=== PATIENT | female | born 1980 | race African-American/Black ===

== ENCOUNTER 2020-10-24 14:45 | Emergency (ER) | payer OTHER ==
[~2020-10-24] VITALS: Ht 167.6 cm; Wt 85.0 kg
[2020-10-24] MEDS ORDERED: LISI40TA4 PO (14:56)
[2020-10-24] MEDS ORDERED: TOPR100T PO (14:56)
[2020-10-24] MEDS ORDERED: AMLO10TA PO (14:56)
[2020-10-24] MEDS ORDERED: HYDR12.55 PO (14:56)
--- NOTE | 2020-10-24 15:26 | REP ---
INDICATION: left knee felt pop when standing, it twisted COMPARISON: None. TECHNIQUE: AP, lateral, bilateral oblique and sunrise views. FINDINGS: Mild/early moderate tricompartmental osteoarthritic degenerative changes are appreciated. No obvious acute fracture or dislocation. No definite effusion. IMPRESSION: Mild/early moderate tricompartmental osteoarthritic changes. No acute fracture or dislocation. <Electronically signed by Xavier Jimenez > 10/24/20 [id number]
[2020-10-24] MEDS ORDERED: NORCO, ANEXSIA 5/325MG TABLET (HYDROcodone/ACETAMINOPHEN) PO ONE (15:35)
[2020-10-24 15:56] VITALS: BP 137/82
== END 2020-10-24 16:09 | disposition home or self-care (01) ==
LOC: M ED 14:45
DX: S83.412A Sprain of medial collateral ligament of left knee, initial encounter (principal); X50.9XXA Other and unspecified overexertion or strenuous movements or postures, initial encounter; Y92.018 Other place in single-family (private) house as the place of occurrence of the external cause; I10 Essential (primary) hypertension; Z91.018 Allergy to other foods; Z79.899 Other long term (current) drug therapy

== ENCOUNTER → 2020-11-08 | Outpatient (CLI) | payer OTHER ==
[~2020-11-08] MED LIST: AMLO10TA PO; HYDR12.55 PO; LISI40TA4 PO; TOPR100T PO
== END ==
LOC: M WHC 14:52
PROVIDERS: ATTEND Family Medicine
DX: Z12.31 Encounter for screening mammogram for malignant neoplasm of breast (principal)

== ENCOUNTER → 2020-11-24 | Outpatient (CLI) | payer OTHER ==
[~2020-11-24] MED LIST changes: +COLA100C5 PO; +D31000TA2 PO
--- NOTE | 2020-11-25 02:42 | REP ---
INDICATION: PAIN. COMPARISON: None. TECHNIQUE: AP weightbearing view of the bilateral knees along with lateral and sunrise view of the left knee. FINDINGS: AP weightbearing view demonstrates increased sclerosis along the tibial plateau with somewhat asymmetric concavity along the lateral tibial plateau with joint space narrowing and subtle marginal spurring. [place] view demonstrates very subtle marginal patellar spurring. There is no evidence for acute fracture or dislocation. No effusion. IMPRESSION: Degenerative changes suggested primarily involving the lateral compartment. Findings do not specifically suggest an acute injury although correlation with physical examination and point of tenderness may be warranted. <Electronically signed by Xavier Jimenez > 11/25/20 [id number]
== END ==
LOC: M SOG 13:57
PROVIDERS: ATTEND Family Medicine
DX: M22.2X2 Patellofemoral disorders, left knee (principal)

== ENCOUNTER 2020-11-30 08:06 | Day surgery (SDC) | payer OTHER ==
[~2020-11-30] VITALS: Ht 167.6 cm; Wt 86.5 kg
[~2020-11-30 08:06] MED LIST changes: +ACETAMINOPHEN 500 MG TAB PO ONE; +CelecoXIB 400 MG CAP PO ONE; +GABAPENTIN 300 MG CAP PO ONE; +LR 1,000 ML IV ONE; +ONDANSETRON 4MG/2ML VIAL IV ONE
[2020-11-30] MEDS ORDERED: CelecoXIB 400 MG CAP PO ONE (09:05)
[2020-11-30] MEDS ORDERED: LIDOCAINE 2% 100MG/5ML SDV (FOR ANES.) As Ordered ONE (09:16)
[2020-11-30] MEDS ORDERED: ONDANSETRON 4MG/2ML VIAL As Ordered ONE (09:16)
[2020-11-30] MEDS ORDERED: METOCLOPRAMIDE INJ 10MG/2ML VIAL (J2765 PER 1) As Ordered ONE (09:16)
[2020-11-30] MEDS ORDERED: propofoL 200 MG/20 ML VIAL As Ordered ONE ×3 (09:16→09:19)
[2020-11-30] MEDS ORDERED: MIDAZOLAM INJ 2MG/2ML VIAL (J2250 PER 1MG) As Ordered ONE (09:17)
[2020-11-30] MEDS ORDERED: fentaNYL 100 MCG/2 ML INJECTION (J3010) As Ordered ONE ×2 (09:17→11:23)
--- NOTE | 2020-11-30 09:21 | POST-OPPD ---
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 Microfracture to 1 x 1.5 cm lateral femoral condylar osteochondral defect. Abrasion chondroplasty to trochlea Tricompartmental debridement SURGEON: Tej Cardenas MD PROGRAM OR PROJECT ADMINISTRATOR: None ANESTHESIA: Gen. anesthetic ESTIMATED BLOOD LOSS: Less than 15 mL mL. COMPLICATIONS: No known complications. REMARKS: Tourniquet inflated for 50 minutes. Overall, there was more significant posttraumatic injury noted on the diagnostic arthroscopy compared to the MRI. PROCEDURE NOTE: The patient was seen in the preoperative area, Consent was reviewed or obtained and the appropriate extremity was marked. DESCRIPTION OF PROCEDURE: The patient was brought to the operating room and after a surgical pause, the anesthetic was induced. The patient was appropriately positioned supine on the operating room table. A tourniquet was applied to the appropriate thigh with appropriate padding. Side bolster was also applied to help with manipulation of the extremity during the procedure. The extremity was prepped with chlorhexidine. The patient was draped in the normal sterile fashion. After a surgical safety checklist was performed, and a timeout was performed, the tourniquet was inflated and the incision over the lateral portal site was carried out. The trocar was introduced using the blunt tip. The scope was introduced and the fluid was allowed to run until the joint was insufflated with the scope in the patellofemoral joint. A diagnostic arthroscopy was then carried out. A medial portal was established using needle localization technique. A superior lateral portal was also established using needle localization. Suprapatellar pouch: Inflamed synovium with significant scar tissue formation debrided with arthroscopic shaver Trochlea: Diffuse grade 4 changes to a large portion of the trochlea down into the intercondylar notch region. Abrasion chondroplasty performed with the shaver Patella: Grade 1-2 changes with possible diffuse thinning of cartilage, specifically over the lateral facet. Debrided with arthroscopic shaver Medial gutter: Clear Lateral gutter: Clear. Medial meniscus: Stable Medial femoral condyle: Grade 2-3 changes debrided with shaver Medial tibial condyle: Grade 2-3 changes debrided with shaver ACL: Stable with stranding apparent Lateral meniscus: Near complete tear of the posterior body of the lateral meniscus debrided back to a stable border with punches and the arthroscopic shaver Lateral femoral condyle: Osteochondral defect measuring 1 x 1.5 cm debrided with arthroscopic shaver and microfracture performed with chondral pick Lateral tibial plateau: Grade 2-3 changes debrided with the arthroscopic shaver Once the arthroscopic procedure was completed, the fluid was removed from the joint and the wounds were closed with 3. 0 Monocryl suture. Local anesthetic of 0.5% Marcaine with epi was instilled in the soft tissues and into the joint region. Mastisol was applied to the skin followed by Steri-Strips and Telfa and Tegaderm dressing. This was reinforced with an abdominal pad and a large Kaushik wrap was placed up to the level of the thigh from the foot and ankle. The patient tolerated the procedure well with no known complications. The patient will be seen for follow-up within 2 weeks, as scheduled. Postoperative instruction booklet was provided. The patient will have prescriptions for oxycodone for pain, baby aspirin for DVT prophylaxis, and senna for constipatio n. Tylenol and ibuprofen can be used as directed by bottle instructions. Paper prescriptions were dispensed from the pharmacy and hand written. Prescriptions were to accompany patient to [facility] pharmacy, as requested. At the patient's request, I updated her mother after surgery by phone. Prescriptions for aspirin, senna, and oxycodone were provided. I did make copies for hospital records. , The patient demonstrated severe posttraumatic changes within the left knee. I will see her for follow-up in approximately 2 weeks' time to see how she is doing. At that point, we'll make the decision if she would like to move forward with a total knee procedure, as she does have tricompartmental involvement of her posttraumatic degenerative changes. TEJ CARDENAS MD Nov 30, 2020 09:21
[2020-11-30] MEDS ORDERED: BUPIVACAINE/EPIN 0.5% 30 ML VIAL As Ordered ONE (09:22)
[2020-11-30] MEDS ORDERED: EPINEPHrine 1MG/ML INJ 30ML MD-VIAL As Ordered ONE (09:23)
[2020-11-30] MEDS ORDERED: oxyCODONE 5MG TAB PO PRN (11:25)
[2020-11-30] MEDS ORDERED: ONDANSETRON 4MG/2ML VIAL IV PRN (11:25)
[2020-11-30] MEDS ORDERED: MEPERIDINE INJ 25 MG/ML VIAL (J2175) IV PRN (11:25)
[2020-11-30] MEDS ORDERED: METOCLOPRAMIDE INJ 10MG/2ML VIAL (J2765 PER 1) IV PRN (11:25)
[2020-11-30] MEDS ORDERED: LR 1,000 ML IV SCH (11:25)
[2020-11-30] MEDS: fentaNYL 100 MCG/2 ML INJECTION (J3010) IV PRN ×4 (11:26→11:41)
[2020-11-30 14:15] VITALS: BP 116/64
== END 2020-11-30 14:42 | disposition home or self-care (01) ==
LOC: M SDC 08:06
PROVIDERS: ATTEND Orthopaedic Surgery Adult Reconstructive Orthopaedic Surgery
DX: M17.31 Unilateral post-traumatic osteoarthritis, right knee (principal); M95.8 Other specified acquired deformities of musculoskeletal system; S83.282A Other tear of lateral meniscus, current injury, left knee, initial encounter; X58.XXXA Exposure to other specified factors, initial encounter; Y92.89 Other specified places as the place of occurrence of the external cause; I10 Essential (primary) hypertension; M79.89 Other specified soft tissue disorders; M25.572 Pain in left ankle and joints of left foot; M25.511 Pain in right shoulder; M25.521 Pain in right elbow; M25.552 Pain in left hip; Z79.899 Other long term (current) drug therapy; Z91.013 Allergy to seafood; Z91.018 Allergy to other foods
CPT/HCPCS: 29881; J2250; J2405; J2765; J3010

== ENCOUNTER → 2020-12-13 | Outpatient (CLI) | payer OTHER ==
[~2020-12-13] MED LIST changes: -ACETAMINOPHEN 500 MG TAB PO ONE; -CelecoXIB 400 MG CAP PO ONE; -GABAPENTIN 300 MG CAP PO ONE; -LR 1,000 ML IV ONE; -ONDANSETRON 4MG/2ML VIAL IV ONE
== END ==
LOC: M SOG 13:11
PROVIDERS: ATTEND Orthopaedic Surgery Adult Reconstructive Orthopaedic Surgery
DX: Z53.8 Procedure and treatment not carried out for other reasons (principal)

== ENCOUNTER → 2020-12-27 | Outpatient (CLI) | payer OTHER ==
--- NOTE | 2020-12-27 15:59 | REP ---
INDICATION: PAIN. COMPARISON: 11/24/2020, 10/24/2020 TECHNIQUE: Frontal and lateral weight-bearing along with sunrise view FINDINGS: Moderate early advanced tricompartmental degenerative changes similar to prior examinations are again noted including increased sclerosis along the tibial plateau with asymmetric irregularities along the lateral tibial plateau. No obvious acute fracture or dislocation. Old injury cannot be excluded. IMPRESSION: Degenerative changes similar to multiple prior examinations. Old injury involving the lateral tibial plateau cannot be excluded. <Electronically signed by Xavier Jimenez > 12/27/20 [id number]
== END ==
LOC: M SOG 15:14
PROVIDERS: ATTEND Orthopaedic Surgery Adult Reconstructive Orthopaedic Surgery
DX: S89.90XA Unspecified injury of unspecified lower leg, initial encounter (principal); Y92.9 Unspecified place or not applicable; Y99.9 Unspecified external cause status

== ENCOUNTER 2020-12-31 12:01 | Outpatient (RCR) | payer OTHER | END 2021-01-17 | LOC: M PT 12:01 | PROVIDERS: ATTEND Orthopaedic Surgery Adult Reconstructive Orthopaedic Surgery | DX: M17.32 Unilateral post-traumatic osteoarthritis, left knee (principal) ==

== ENCOUNTER → 2021-01-06 | Outpatient (CLI) | payer OTHER ==
--- NOTE | 2021-01-07 10:05 | REP ---
INDICATION: LT POST TRAUMATIC OA. COMPARISON: Knee radiographs 12/27/2020. TECHNIQUE: Axial CT of left hip, knee and ankle performed with sagittal and coronal reconstructions, per Kennedy protocol. FINDINGS: The left hip demonstrates no fracture, dislocation or intrinsic bone disease. There is minor joint space narrowing. In the lateral femoral head there is a 9 mm subchondral cyst. No soft tissue abnormality is seen. At the left knee there is evidence of a moderate joint effusion. There is no acute fracture or dislocation. There is mild lateral patellofemoral compartment narrowing and subchondral sclerosis. There appears to be mild depression of the lateral tibial plateau having the appearance of an old fracture. There is mild diffuse joint space narrowing and subchondral sclerosis of both the medial and lateral compartments. There is mild spurring of the femoral condyles and tibial plateaus. Left ankle demonstrates no evidence of acute fracture, dislocation or intrinsic bone disease. The ankle mortise is anatomic. There is a tiny posterior calcaneal spur. There appears to be mild bony bridging of the calcaneus and navicular bone on sagittal reconstruction images, compatible with tarsal coalition. IMPRESSION: Minor arthritic changes left hip joint. Suspect old mild depression fracture lateral tibial plateau. Tricompartmental arthritic changes of the left knee with moderate joint effusion. 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 <Electronically signed by Joseph Gaines > 01/07/21 1001
== END ==
LOC: M RAD 09:42
PROVIDERS: ATTEND Orthopaedic Surgery Adult Reconstructive Orthopaedic Surgery
DX: M17.32 Unilateral post-traumatic osteoarthritis, left knee (principal)

== ENCOUNTER 2021-01-19 08:49 | Inpatient (IN) | payer OTHER ==
[~2021-01-19] VITALS: Ht 198.1 cm; Wt 85.7 kg
[~2021-01-19 08:49] MED LIST changes: +ACETAMINOPHEN 500 MG TAB PO ONE; +LIDOCAINE 1% MDV 20ML VIAL SQ PRN; +LIDOCAINE 2% 100MG/5ML SDV (FOR ANES.) As Ordered ONE; +LR 1,000 ML IV ONE; +MIDAZOLAM INJ 2MG/2ML VIAL (J2250 PER 1MG) As Ordered ONE; +NAPROXEN 250 MG TAB PO ONE; +NS 1,000 ML IV ONE; +ONDANSETRON 4MG/2ML VIAL As Ordered ONE; +PREGABALIN 25 MG CAP (LYRICA) PO ONE; +ROCURONIUM BROMIDE 50 MG/5 ML VIAL As Ordered ONE; +ROPIVA 125MG/EPINEPH 0.25MG/CLONID 40MCG/KETOR 15MG IN NS 50ML SYRINGE PA ONE; +ceFAZolin SOD 2 GM in IV 1 EA IV ONE; +dexameTHASONE 20MG/5ML VIAL (J1100 PER 1MG) IV ONE; +dexameTHASONE 4 MG/ML 1ML VIAL (J1100 PER 1MG) As Ordered ONE; +fentaNYL 100 MCG/2 ML INJECTION (J3010) As Ordered ONE; +propofoL 200 MG/20 ML VIAL As Ordered ONE
[2021-01-19] MEDS ORDERED: TRANEXAMIC ACID 100 MG/ML 10ML VIAL As Ordered ONE (11:00)
[2021-01-19] MEDS ORDERED: dexameTHASONE 4 MG/ML 1ML VIAL (J1100 PER 1MG) As Ordered ONE (11:45)
[2021-01-19] MEDS ORDERED: propofoL 200 MG/20 ML VIAL As Ordered ONE ×7 (11:45→14:08)
[2021-01-19] MEDS ORDERED: PHENYLephrine 500MCG 5ML (100MCG/ML) SYRINGE As Ordered ONE (13:57)
[2021-01-19] MEDS ORDERED: fentaNYL 100 MCG/2 ML INJECTION (J3010) As Ordered ONE (15:10)
--- NOTE | 2021-01-19 15:42 | ROOPDOC ---
[facility] Report Of Operation Report of Operation DATE OF PROCEDURE: 01/19/21 PREPROCEDURE DIAGNOSES: Left knee posttraumatic osteoarthritis POSTPROCEDURE DIAGNOSES: Left knee posttraumatic osteoarthritis PROCEDURE: Left total knee arthroplasty SURGEON: Jay Cardenas MD ACT TUTOR: CHASE ANESTHESIA: Spinal ESTIMATED BLOOD LOSS: Approximately a centimeter milliliters mL. COMPLICATIONS: No known complications REMARKS: Of note, the Kennedy total knee arthroplasty, robotic system was unavailable today for her surgery. I did discuss with the patient of the robotic arm would not be available. She was given the option of delaying surgical intervention. She decided that she would like to go ahead with non robotic- assisted left total knee arthroplasty. Tourniquet time: Not inflated Components: Carol cemented components Size 3 triathlon left femoral component posterior stabilized Size 3 triathlon tibial component 35 mm patellar component Bone cement with tobramycin 3 packages 11 mm polyethylene posterior stabilized PROCEDURE NOTE: The patient was seen in the preoperative area and the left lower extremity was marked.. She denied any significant change in her past medical history. DESCRIPTION OF PROCEDURE: The patient was brought to the operating room. She was positioned supine on the table and after a checklist was performed. She had a spinal anesthetic. She was then positioned supine and the left lower extremity had a tourniquet placed, which was not inflated throughout the procedure. Received 2 g of Ancef IV prior to the surgery, as well as one IV gram of tranexamic acid. After the spinal anesthetic had been induced and the patient was appropriately positioned, the left lower extremity was cleansed with chlorhexidine brush followed by 2 times alcohol swab and hydrogen peroxide way. She then had 2 sterile chlorhexidine preps carried out. The left lower extremity was prepped and draped in the normal sterile fashion. A surgical timeout and positives carried out. Incision was then started midline, going through skin and subcutaneous tissue down to the fascia. Bleeders were controlled with electrocautery. A midline arthrotomy was carried out. The leg was brought into extension and the patella was inverted and the knee was flexed up. The fat pad was removed with a asia and electrocautery avoiding any contact of the patellar tendon. An area of soft tissue was removed from the femoral metadiaphyseal area just beyond the cartilage surface on the lateral side anteriorly. This was to allow the appropriate sizing with the manual jig. The anterior cruciate ligament was removed. A medial soft tissue release was performed. The intramedullary alignment guide was placed after reaming through the distal femoral starter point. This was slightly flexed and secured into position with the flexible intramedullary guide. This was a 5 valgus cut angle. After the guide was secured, the distal femoral cuts were performed with the Homans protecting the collateral ligaments. Attention was then turned to the tibia. The extra medullary guide was placed around the ankle with a 3 posterior slope cutting guide. An additional few degrees of posterior slope was dialed in and the alignment appeared to be following the tibia through the entirety. The 9 mm was taken off the medial side, however, as there appeared to be slightly more wear on the lateral aspect of the tibial plateau compared to the medial side on x-ray imaging. With the PCL retractor in position, and the Homans protecting the collateral ligaments, the p roximal tibial cut was carried out. A quarter-inch osteotome was used to protect the PCL attachment with a rim of bone. There is a little bit of skyving over the lateral aspect, so this was freshened up free hand with the saw to remove some remaining posterior edge of bone. Attention was then turned to the femur and the femoral sizing guide was utilized along with the blade runner to determine an approximate size 4 femoral component. The size appeared to be between 3 and a 4 however, the 4 was chosen as the possibility to down size was available if necessary. The size 4, 4-in-1 cutting block was applied. This was secured in position and with appropriate protection of the soft tissues. The 4 cuts were made. The leg was then flexed up and the menisci were removed with electrocautery, protecting the PCL. Osteophytes were removed posteriorly as needed. The size 4 femur was placed in position. This was noted to have significant medial lateral overhang so the decision was made to downsize to a size 3 femoral component. The size 3, 4-in-1 cutting block was applied and the anterior cut was repeated without any significant signs of notching or otherwise. The tibial component trial was placed followed by a size 9 mm polyethylene and the femur was placed in this position. It was found to be tight laterally. The tibial alignment param was placed. This appeared to be aligning with the second metat arsal. However, I was concerned that some of the hard bone that was found laterally may have caused some skiving and this was leading to some tightness in the lateral compartment associated with an inadequate resection of bone from the lateral tibial plateau. I removed the pins and utilizing the blade runner to hold the cutting jig in place, the external alignment guide was repositioned and the alignment param was removed medially at the distal tip in order to resect some more lateral tibial plateau in particular. The proximal tibia was recut. With trialing, the lateral aspect was no longer felt to be tight. After this, we cutting of the proximal tibia. The alignment guide was then rechecked with the alignment param and this again appeared to be pointing towards the second metatarsal. It was noted that the medial release during the procedure had extended resulting in a few millimeters of medial opening opening with the CR components. I decided that I would convert to a posterior stabilized knee as I prefer a more rigid knee in extension in particular. The cutting guide was applied. This had to be adjusted. Afterwards as it was noted that with the size 3 femoral component. There was a little bit of lateral overhang, so the cutting guide was moved a few millimeters medially and the cuts were adjusted. Trialing then occurred with an 11 mm polyethylene and this seemed to provide appropriate stability in both extension and flexion. The leg appeared to have full extension and was flexing up greater than 125. There appeared to be neutral alignment. The tibia was appropriately externally rotated aligning with the medial third of the tibial tubercle. This was pinned in position and then the keel punch was placed. The proximal tibia was also drilled with a 2 mm drill pin due to some of the sclerotic bone over the lateral surface in particular. This was to help cement interdigitation During the procedure, the patella was cut freehand with a saw and using towel clips. This was reamed appropriately. A trial component was placed and taken through a range of motion. At this point, the components appeared to be tracking appropriately without any concerns. The WIL , local anesthetic cocktail was placed. The wound was irrigated. The bones were irrigated with pulse lavage. The cement was mixed with antibiotic cement and this was applied to the components as well as the bones. The tibial component was placed first and impacted. Excess extruded cement was removed with a [place]. Attention was then turned to the femoral side. This was appropriately impacted. The size 11 polyethylene trial was placed. The knee was brought into extension and then flexed up and excess cement that had been extruded was removed with the [place], including within the notch. The leg was then brought out into extension and allowed to sit in an extended position as the cement dried. The patellar component was placed and allowed to sit in position. It was noted that the asymmetric portion of the patellar component was not appropriately positioned and causing some tracking issues. This had to be removed with the saw and the holes were re-reamed. The knee was then thoroughly irrigated. The dyson lla was reprepped and the patellar component was cemented in position with a more appropriate alignment, That allowed appropriate tracking of the patellar component. While the components were curing in position with the cement, 2 g of topical tranexamic acid was placed into the wound with normal sterile saline and this was allowed to sit. Of note, prior to implanting of the components. The leg was brought into extension without any components in position to look for any bleeders in the posterior aspect of the joint. None were noted. Electrocautery; however, was utilized throughout the procedure to control bleeding. Once all the components had cured, the knee was brought through a range of motion. There appeared to be a little bit of clicking posteriorly laterally. This was thought to be associated with the popliteus tendon. A release of this was performed as well as removal of some soft tissue laterally. Excessive cement was also removed and irrigated out. A quarter-inch curved osteotome was used to remove some cement from the intercondylar notch. Further irrigation was then carried out after removal of the trial polyethylene. The final 11 mm polyethylene component was placed. This appeared to have good stability in extension and flexion without any appreciable mid flexion instability. The wound was thoroughly irrigated. Of note, no Betadine solution was utilized, nor was any Ioban material due to the patient's shellfish allergy. Closure started with a #1 Vicryl. This was used to close the arthrotomy and on erupted fashion. This was followed by a running barbed suture. An irrigation occurred between layers. The subcutaneous tissue was closed with #1 Vicryl followed by a running 2-0 Vicryl followed by a running 3. 0 Monocryl antibacterial suture. The wound edges were cleansed and dried and then Mastisol was used as an adhesive to help the Steri-Strips stay in position. A Mepilex dressing was then placed. The leg was covered with ABDs pads and then wrapped with the rajani wrap. The patient's own, ice pad was applied outside of the rajani wrap for continuous icing. The patient tolerated the procedure well with no known complications. She was taken to the recovery room in stable condition. At her request, I updated her mother about the surgery by phone. The patient will be weightbearing as tolerated with physical therapy to assess. The hospitalist service was contacted for admission. She'll be reevaluated tomorrow with discharge, possible. JAY CARDENAS MD Jan 19, 2021 15:42
[2021-01-19] MEDS ORDERED: MORPHINE 2 MG/ML 1ML VIAL (J2270) IV PRN (15:45)
[2021-01-19] MEDS ORDERED: ONDANSETRON 4MG/2ML VIAL IV PRN ×2 (15:45→18:45)
[2021-01-19] MEDS ORDERED: LR 1,000 ML IV SCH (15:45)
[2021-01-19] MEDS: oxyCODONE 5MG TAB PO PRN ×3 (15:55→20:52)
--- NOTE | 2021-01-19 15:56 | REP ---
INDICATION: S/P LEFT KNEE ARTHROPLASTY COMPARISON: None. TECHNIQUE: AP and cross-table lateral views. FINDINGS: Normal appearance and positioning to the femoral and tibial components. Overlying postsurgical changes including soft tissue swelling and subcutaneous/intra-articular gas noted. IMPRESSION: Status post left knee replacement. <Electronically signed by Xavier Jimenez > 01/19/21 [id number]
[2021-01-19] MEDS: fentaNYL 100 MCG/2 ML INJECTION (J3010) IV PRN ×3 (15:59→16:27)
[2021-01-19] MEDS ORDERED: MOM 30ML SUSPENSION UDC PO PRN (16:45)
[2021-01-19] MEDS ORDERED: MAALOX 30 ML SUSP *UDC PO PRN (16:45)
--- NOTE | 2021-01-19 16:48 | HPEPDOC ---
[facility] Medical History & Physical Date of Admission Jan 19, 2021 Date of Service: Jan 19, 2021 History and Physical Chief complaint: Who presented to [facility] for an elective left knee arthroplasty History of present illness: Patient is a 40-year-old female who presented to [facility] for elective orthopedic procedure with Dr. Hannon. Patient has received outpatient medical clearance from her primary care provider, Dr. Rodríguez at [place]. Hospital services consulted post procedure for medical management and for admission to their service. Currently patient denies any headache, vomiting, chest pain, shortness breath, palpitations, cough. Denies any abdominal pain, constipation or diarrhea. Reports some nausea. Denies any urinary discomfort. Has not experienced any recent fevers or chills. Patient reports that her appetite is poor and they have expressed a weight gain of 20 pounds because they have been less mobile. 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 Review of Systems: 10 point review of systems complete, all negative otherwise stated in HPI Physical exam: - Vitals: BP [137/66], HR [92], RR [18], Sat [98%RA], Temp [97.0F] - General: Lying in bed, No acute distress, Speaking in full sentences, AAOx3 - HEENT: NC, AT, PERRLA - CVS: RRR, +S1S2 - Lungs: Fair air entry bilaterally, No appreciable wheezing / rales / rhonchi - Abdomen: Soft, Non-distended, Non-tender - Extremities: No lower extremity edema, No calf tenderness, left leg with dressing in place - Neuro: No focal motor or sensory deficit - Skin: No visible rashes Labs: See below Imaging: See below EKG: See below Assessment and Plan: Left knee arthroplasty - Patient presented to [facility] for elective orthopedic procedure - She has received outpatient medical clearance from her primary care provider - Pain control, anticoagulation and physical therapy at the direction of orthope dic surgery - Orthopedic surgery on consultation HTN - Blood pressure is currently well controlled - Will resume Amlodipine, HCTZ, Metoprolol and Lisinopril with holding parameters Vitamin D deficiency - c/w supplementation DVT prophylaxis - Will c/w TEDs/Sequentials - As per orthopedic team Vital Signs Vital Signs Date Time Temp Pulse Resp B/P (MAP) Pulse Ox O2 Delivery O2 Flow Rate FiO2 01/19/21 16:27 17 Room Air 01/19/21 16:25 92 137/66 (89) 98 01/19/21 16:15 97.0 Home Medications Scheduled Amlodipine Besylate (Norvasc) 10 Mg Tablet, 10 MG PO DAILY Cholecalciferol (Vitamin D3) (Vitamin D3) 1,000 Unit Tablet, 5,000 UNITS PO DAILY Docusate Sodium (Colace) 100 Mg Capsule, 100 MG PO DAILY Hydrochlorothiazide (Hydrochlorothiazide) 12.5 Mg Tablet, 12.5 MG PO DAILY Lisinopril (Lisinopril) 40 Mg Tablet, 40 MG PO DAILY Metoprolol Succinate (Toprol Xl) 100 Mg Tab.er.24h, 100 MG PO DAILY Allergies Coded Allergies: shellfish derived (Verified Allergy, Severe, anaphylaxis, 11/26/20) kiwi (Verified Allergy, Unknown, itchy mouth, 11/26/20) BIRGIT CRESPO MD Jan 19, 2021 16:48
[2021-01-19 17:00] VITALS: BP 108/73
[2021-01-19 17:30] VITALS: BP 107/70
[2021-01-19] MEDS: LR 1,000 ML IV SCH (18:15)
[2021-01-19 18:30] VITALS: BP 119/78
[2021-01-19] MEDS ORDERED: SENNA 8.6 MG TAB (SENOKOT) PO PRN (18:45)
[2021-01-19] MEDS ORDERED: oxyCODONE 5MG TAB PO PRN (18:50)
[2021-01-19] MEDS: traMADol 50 MG TAB PO PRN (18:57)
[2021-01-19] MEDS: ceFAZolin SOD 2 GM in IV 1 EA IV SCH (18:58)
[2021-01-19] MEDS: ACETAMINOPHEN TAB 650MG DOSE (2X325MG) PO SCH (18:58)
[2021-01-19 19:30] VITALS: BP 119/79
[2021-01-19 20:30] VITALS: BP 119/78
[2021-01-19] MEDS: DOCUSATE SODIUM 100MG CAPSULE PO SCH (20:52)
[2021-01-19] MEDS: ASPIRIN 81MG ENTERIC TABLET PO SCH (20:52)
[2021-01-19] MEDS: NAPROXEN 250 MG TAB PO SCH (20:53)
[2021-01-20] MEDS: ACETAMINOPHEN TAB 650MG DOSE (2X325MG) PO SCH ×3 (00:13→12:00)
[2021-01-20] MEDS: ceFAZolin SOD 2 GM in IV 1 EA IV SCH (02:51)
[2021-01-20] MEDS: oxyCODONE 5MG TAB PO PRN ×2 (02:52→09:22)
[2021-01-20] MEDS: LR 1,000 ML IV SCH (04:03)
[2021-01-20] MEDS: traMADol 50 MG TAB PO PRN (05:58)
[2021-01-20 06:00] VITALS: BP 108/73
[2021-01-20 06:03] LABS: BASO % 0.1 % (0.0-1.0); EOS % 0.1 % (0.0-3.0); HEMATOCRIT 31.3 % (36.0-47.0); HEMOGLOBIN 10.2 g/dl (12.0-15.5); LYMPH # 1.7 10^3/uL (1.5-5.0); LYMPH % 12.6 % (24.0-44.0); MEAN CORPUSCULAR HEMOGLOBIN 27.1 pg (27.0-33.0); MEAN CORPUSCULAR HGB CONC 32.6 g/dl (32.0-36.5); MEAN CORPUSCULAR VOLUME 83.2 fl (80.0-96.0); MONO # 1.3 10^3/uL (0.0-0.8); MONO % 9.5 % (2.0-8.0); NEUTROPHILS # 10.5 10^3/uL (1.5-8.5); NEUTROPHILS % 76.9 % (36.0-66.0); PLATELET COUNT, AUTOMATED 300 10^3/uL (150-450); RED BLOOD COUNT 3.76 10^6/uL (4.00-5.40); WHITE BLOOD COUNT 13.6 10^3/uL (4.0-10.0)
[2021-01-20 06:31] LABS: BLOOD UREA NITROGEN 15 MG/DL (7-18); CALCIUM LEVEL 8.5 MG/DL (8.5-10.1); CARBON DIOXIDE LEVEL 25 MEQ/L (21-32); CHLORIDE LEVEL 107 MEQ/L (98-107); CREATININE FOR GFR 0.64 MG/DL (0.55-1.30); GLOMERULAR FILTRATION RATE > 60.0 (>58); GLUCOSE, FASTING 128 MG/DL (70-100); MAGNESIUM LEVEL 1.9 MG/DL (1.8-2.4); POTASSIUM SERUM 4.2 MEQ/L (3.5-5.1); SODIUM LEVEL 139 MEQ/L (136-145)
--- NOTE | 2021-01-20 08:58 | IPNPDOC ---
Text Note Date of Service The patient was seen on 01/20/21. NOTE POD 1 L TKA Pt well, pain controlled, no significant complaints or concerns. I spent several minutes discussing the surgery and answering the patient's questions, regarding multiple operative and post operative questions. I have answered her questions to her satisfaction. Oxycodone pain medication has been working, not the tramadol. Dressing intact. No staining. Grossly NVI to left foot and ankle. Palpable PT pulse. Post op xray imaging shows prosthesis intact with no obvious complications to L TKA Plan for DC home c PT, OT and Nursing. Pt has requested oxycodone pain medication Rx. I have also written an Rx for outpt Physical therapy for Christoph at her request, as she would like to start this nubia. Discharge Instructions Total Knee Arthroplasty 1. Pain: You may take oxycodone as prescribed for pain. Supplement with antiinflammatory and Tylenol as needed. Ice pack/ cryotherapy to operative knee as tolerated. 2. Wound care: Remove dressing on postop day 7. Call [phone] with any questions or concerns. Hygiene: The patient may shower. No tub baths or soaking. Check dressing seal prior to bathing. 3. Activity: WBAT on the right lower extremity. Front wheeled walker versus crutches for ambulation. Fall precautions. Anterolateral hip precautions (NO figure of 4/crossing legs, combined external rotation/extension, combined internal rotation/abduction). 4. Driving: No driving until cleared by your surgeon. Do not drive if taking narcotic pain medications as these may make you drowsy. 5. DVT Prophylaxis: Continue taking aspirin 81 mg by mouth twice a day as prescribed for the prevention of blood clots for 4 weeks. Ankle pumps every 1 hour while awake. AKILA hose at all times for 1 month after surgery. May remove for hygiene and wound care. 6. Placement: Plan is to discharge patient to home with home health including nursing and physical therapy. 7. Surgeon Follow-up: The patient is scheduled to be seen in Dr. Cardenas's office 2 weeks post op with xrays. 8. Primary care Follow-up: Please see your primary care provider in the next 2 to 5 weeks for general medical re-evaluation and medication review. 9. Labs: CBC without differential and BMP to be drawn on POD 3 with results to PCP and please fax to [phone]. 10. Please contact [facility] if you have any questions or concerns at [phone]. VS,Fishbone, I+O VS, Fishbone, I+O Laboratory Tests 01/20/21 05:32 Vital Signs Date Time Temp Pulse Resp B/P (MAP) Pulse Ox O2 Delivery O2 Flow Rate FiO2 01/20/21 06:28 16 01/20/21 06:00 97.4 86 108/73 (85) 100 Room Air I&O- Last 24 Hours up to 6 AM 01/20/21 06:00 Intake Total 2860 ml Output Total 700 ml Balance 2160 ml JAY CARDENAS MD Jan 20, 2021 08:58
[2021-01-20] MEDS ORDERED: VITAMIN D 1,000 INTERNATIONAL UNITS TABLET PO SCH (09:00)
[2021-01-20] MEDS ORDERED: hydroCHLOROthiazide 12.5 MG CAPSULE PO SCH (09:00)
[2021-01-20] MEDS ORDERED: ASCORBIC ACID 500 MG TAB PO SCH (09:00)
[2021-01-20] MEDS ORDERED: METOPROLOL SUCC (TopROL XL) 100MG *XL* TAB PO SCH (09:00)
[2021-01-20] MEDS ORDERED: lisinopriL 40 MG TAB PO SCH (09:00)
[2021-01-20] MEDS ORDERED: FERROUS SULFATE 325MG TAB PO SCH (09:00)
[2021-01-20] MEDS: DOCUSATE SODIUM 100MG CAPSULE PO SCH (09:19)
[2021-01-20 09:20] VITALS: BP 108/73
[2021-01-20] MEDS: NAPROXEN 250 MG TAB PO SCH (09:21)
[2021-01-20] MEDS: ASPIRIN 81MG ENTERIC TABLET PO SCH (09:21)
[2021-01-20 09:30] VITALS: BP 138/89
[2021-01-20] MEDS ORDERED: ASPI-551 PO (09:36)
[2021-01-20] MEDS ORDERED: ACET1TAB55 PO (09:36)
[2021-01-20] MEDS ORDERED: OXYC-517 PO (09:36)
[2021-01-20] MEDS ORDERED: MIRA3350 PO (09:36)
--- NOTE | 2021-01-20 12:04 | DS.PDOC ---
Discharge Summary General Date of Admission 01/19/2021 Date of Discharge 01/20/2021 Discharge Summary PROCEDURES PERFORMED DURING STAY: Left total knee arthroplasty on 01/19/[address] Hannon ADMITTING DIAGNOSES / DISCHARGE DIAGNOSES: Left knee arthroplasty Leukocytosis - likely 2/2 reactive etiology HTN Vitamin D deficiency DVT prophylaxis COMPLICATIONS/CHIEF COMPLAINT: Left knee pain HISTORY OF PRESENT ILLNESS: Patient is a 40-year-old female who presented to [facility] for elective orthopedic procedure with Dr. Hannon. Patient has received outpatient medical clearance from her primary care provider, Dr. Rodríguez at [place]. Hospitalist services consulted post procedure for medical management and for admission to their service. Patient was seen and examined at the bedside this morning. She denies any nausea, vomiting, abdominal pain, diarrhea, or urinary discomfort. Patient has been ambulatory to the bathroom and today she'll be working with physical therapy if he clears, she will likely go home. HOSPITAL COURSE: Left knee arthroplasty - Patient presented to [facility] for elective orthopedic procedure - She has received outpatient medical clearance from her primary care provider - Pain control, anticoagulation and physical therapy at the direction of orthopedic surgery - Orthopedic surgery on consultation Leukocytosis - likely 2/2 reactive etiology - ROS has been negative for any source of infection - Patient remains afebrile and hemodynamically stable - No indication for antibiotics at this time - Will have outpatient follow-up with primary care provider HTN - Blood pressure is currently well controlled - c/w Amlodipine, HCTZ, Metoprolol and Lisinopril with holding parameters Vitamin D deficiency - c/w supplementation DVT prophylaxis - c/w TEDs/Sequentials - ASA BID as per orthopedic team DISCHARGE MEDICATIONS: Please see below. ALLERGIES: Please see below. PHYSICAL EXAMINATION ON DISCHARGE: Vitals (See below) General: Lying in bed, appears comfortable, AAOx3 HEENT: NC, AT CVS: +S1S2 Lungs: Fair air entry b/l, no wheezing, rhonchi or rales Abdomen: Soft, ND, NT Extremities: - Edema, - Calf tenderness, left knee in dressing LABORATORY DATA: Please see below. IMAGING: XR knee 01/19: Status post left knee replacement. ACTIVITY: [As tolerated]. DISCHARGE PLAN: Follow-up with primary care provider and orthopedic surgery within the next 7 days Remain compliant with treatment plan and medications Return to the ER if you experience any problems DISPOSITION: Home with services ITEMS TO FOLLOWUP ON ON OUTPATIENT: Repeat lab work postop day 3 as per orthopedic surgery DISCHARGE CONDITION: [Stable]. TIME SPENT ON DISCHARGE: 35 minutes Vital Signs/I&Os Vital Signs Date Time Temp Pulse Resp B/P (MAP) Pulse Ox O2 Delivery O2 Flow Rate FiO2 01/20/21 10:22 18 Room Air 01/20/21 09:30 88 138/89 (105) 01/20/21 06:00 97.4 100 I&O- Last 24 Hours up to 6 AM 01/20/21 06:00 Intake Total 2860 ml Output Total 700 ml Balance 2160 ml Laboratory Data Labs 24H Laboratory Tests 2 01/20/21 05:32: Immature Granulocyte % (Auto) 0.8, Neutrophils (%) (Auto) 76.9H, Lymphocytes (%) (Auto) 12.6L, Monocytes (%) (Auto) 9.5H, Eosinophils (%) (Auto) 0.1, Basophils (%) (Auto) 0.1, Neutrophils # (Auto) 10.5H, Lymphocytes # (Auto) 1.7, Monocytes # (Auto) 1.3H, Eosinophils # (Auto) 0.0, Basophils # (Auto) 0.0, Nucleated Red Blood Cells % (auto) 0.0, Anion Gap 7L, Glomerular Filtration Rate > 60.0, Calcium Level 8.5, Magnesium Level 1.9 CBC/BMP Laboratory Tests 01/20/21 05:32 Discharge Medications Scheduled Amlodipine Besylate (Norvasc) 10 Mg Tablet, 10 MG PO DAILY, (Reported) Aspirin (Aspirin EC) 81 Mg Tablet.dr, 81 MG PO BID Cholecalciferol (Vitamin D3) (Vitamin D3) 1,000 Unit Tablet, 5,000 UNITS PO DAILY, (Reported) Docusate Sodium (Colace) 100 Mg Capsule, 100 MG PO DAILY, (Reported) Hydrochlorothiazide (Hydrochlorothiazide) 12.5 Mg Tablet, 12.5 MG PO DAILY, (Reported) Lisinopril (Lisinopril) 40 Mg Tablet, 40 MG PO DAILY, (Reported) Metoprolol Succinate (Toprol Xl) 100 Mg Tab.er.24h, 100 MG PO DAILY, (Reported) Scheduled PRN Acetaminophen (Acetaminophen) 325 Mg Tablet, 650 MG PO Q6H PRN for MILD/MODERATE PAIN (PS 1-7) Oxycodone HCl (Oxycodone HCl) 5 Mg Tablet, 1-2 TAB PO Q8HP PRN for SEVERE PAIN (PS 8-10) Polyethylene Glycol 3350 (Miralax) 119 Gm Powder, 17 GM PO DAILY PRN for CONSTIPATION dilute in 8 ounces of water or juice Allergies Coded Allergies: shellfish derived (Verified Allergy, Severe, anaphylaxis, 11/26/20) kiwi (Verified Allergy, Unknown, itchy mouth, 11/26/20) BIRGIT CRESPO MD Jan 20, 2021 12:04
== END 2021-01-20 12:30 | disposition home health service (06) | DRG 470 ==
LOC: M SDC 08:49 → M MS5PR 16:44 → M SDC 17:09 → M MS5PR 01-20 12:30 → M SDC 01-20 12:30
PROVIDERS: ADMIT Internal Medicine; ATTEND Orthopaedic Surgery Adult Reconstructive Orthopaedic Surgery
PROC: 0SRD0J9 Replacement of Left Knee Joint with Synthetic Substitute, Cemented, Open Approach (ICD-10-PCS; principal; 2021-01-19 10:45)
DX: M17.32 Unilateral post-traumatic osteoarthritis, left knee (principal); I10 Essential (primary) hypertension; E55.9 Vitamin D deficiency, unspecified; Z79.899 Other long term (current) drug therapy; Z91.018 Allergy to other foods; Z91.013 Allergy to seafood; Z90.49 Acquired absence of other specified parts of digestive tract
CPT/HCPCS: 27447; S2900

== ENCOUNTER → 2021-01-27 | Outpatient (CLI) | payer OTHER ==
[~2021-01-27] MED LIST changes: +ACET1TAB55 PO; -ACETAMINOPHEN 500 MG TAB PO ONE; +ASPI-551 PO; -LIDOCAINE 1% MDV 20ML VIAL SQ PRN; -LIDOCAINE 2% 100MG/5ML SDV (FOR ANES.) As Ordered ONE; -LR 1,000 ML IV ONE; -MIDAZOLAM INJ 2MG/2ML VIAL (J2250 PER 1MG) As Ordered ONE; +MIRA3350 PO; -NAPROXEN 250 MG TAB PO ONE; -NS 1,000 ML IV ONE; -ONDANSETRON 4MG/2ML VIAL As Ordered ONE; +OXYC-517 PO; -PREGABALIN 25 MG CAP (LYRICA) PO ONE; -ROCURONIUM BROMIDE 50 MG/5 ML VIAL As Ordered ONE; -ROPIVA 125MG/EPINEPH 0.25MG/CLONID 40MCG/KETOR 15MG IN NS 50ML SYRINGE PA ONE; -ceFAZolin SOD 2 GM in IV 1 EA IV ONE; -dexameTHASONE 20MG/5ML VIAL (J1100 PER 1MG) IV ONE; -dexameTHASONE 4 MG/ML 1ML VIAL (J1100 PER 1MG) As Ordered ONE; -fentaNYL 100 MCG/2 ML INJECTION (J3010) As Ordered ONE; -propofoL 200 MG/20 ML VIAL As Ordered ONE
[2021-01-27 11:12] LABS: HEMATOCRIT 34.5 % (36.0-47.0); MEAN CORPUSCULAR HEMOGLOBIN 26.9 pg (27.0-33.0); MEAN CORPUSCULAR HGB CONC 31.9 g/dl (32.0-36.5); MEAN CORPUSCULAR VOLUME 84.4 fl (80.0-96.0); PLATELET COUNT, AUTOMATED 499 10^3/uL (150-450); RED BLOOD COUNT 4.09 10^6/uL (4.00-5.40); WHITE BLOOD COUNT 7.4 10^3/uL (4.0-10.0)
[2021-01-27 13:25] LABS: BLOOD UREA NITROGEN 25 MG/DL (7-18); CARBON DIOXIDE LEVEL 30 MEQ/L (21-32); CHLORIDE LEVEL 102 MEQ/L (98-107); CREATININE FOR GFR 0.78 MG/DL (0.55-1.30); GLOMERULAR FILTRATION RATE > 60.0 (>58); GLUCOSE, FASTING 98 MG/DL (70-100); POTASSIUM SERUM 4.3 MEQ/L (3.5-5.1); SODIUM LEVEL 137 MEQ/L (136-145)
== END ==
LOC: M LAB 09:53
PROVIDERS: ATTEND Orthopaedic Surgery Adult Reconstructive Orthopaedic Surgery
DX: Z96.652 Presence of left artificial knee joint (principal)

== ENCOUNTER → 2021-02-01 | Outpatient (CLI) | payer OTHER ==
--- NOTE | 2021-02-01 10:29 | REP ---
INDICATION: ENCOUNTER FOR OTHER SPEC SURGICAL AFTERCARE. COMPARISON: 01/19/2021 TECHNIQUE: AP, lateral, sunrise views of the left knee FINDINGS: Normal appearance and positioning to the knee prosthetic hardware with resolving postsurgical changes. Osseous structures are intact and essentially normal. Decreased soft tissue swelling and suspected joint/suprapatellar effusion noted. IMPRESSION: Improving postoperative changes. <Electronically signed by Xavier Jimenez > 02/01/21 [id number]
== END ==
LOC: M SOG 09:47
PROVIDERS: ATTEND Orthopaedic Surgery Adult Reconstructive Orthopaedic Surgery
DX: Z48.89 Encounter for other specified surgical aftercare (principal); Z98.890 Other specified postprocedural states

== ENCOUNTER → 2021-03-15 | Outpatient (CLI) | payer OTHER ==
--- NOTE | 2021-03-15 14:21 | REP ---
INDICATION: PRESENCE OF LT ARTIFICIAL KNEE JOINT. COMPARISON: Comparison radiographs February 01, 2021.. TECHNIQUE: Three views of the left knee are provided. FINDINGS: Patient is status post left knee arthroplasty. Arthroplasty components remain well aligned with respect to each other and the [place] bones. Mild periarticular soft tissue swelling persists. No change in position. IMPRESSION: Status post left knee arthroplasty. <Electronically signed by Saman Hopper > 03/15/21 [id number]
== END ==
LOC: M SOG 09:26
PROVIDERS: ATTEND Orthopaedic Surgery Adult Reconstructive Orthopaedic Surgery
DX: Z96.652 Presence of left artificial knee joint (principal)

== ENCOUNTER → 2021-03-29 | Outpatient (CLI) | payer OTHER ==
[~2021-03-29] MED LIST changes: +ISOVUE-370 76% 100ML VIAL As Ordered ONE
--- NOTE | 2021-03-29 12:51 | REP ---
INDICATION: INFERTILITY. Status post tubal ligation. COMPARISON: None. TECHNIQUE: The endometrium is cannulated by the attending livestock feeder. Fluoroscopic guidance is provided during contrast injection and intermittent spot filming is acquired. 0.4 minutes of fluoroscopy time is utilized. FINDINGS: There is opacification of a normal shaped endometrial cavity. Two small air bubbles are noted in the left side of the uterine endometrial cavity. The isthmic segments of the fallopian tubes are opacified bilaterally. There is lymphatic reflux implying adequate injection pressure. The right fallopian tube is occluded. There is contrast outlining the peritoneal cavity on the left adjacent to the isthmic segment of the left fallopian tube. The ampullary segment of the left fallopian tube is not opacified. IMPRESSION: The fallopian tubes are abnormal bilaterally consistent with bilateral tubal ligation. The right fallopian tube is occluded. There is however some peritoneal spillage from the isthmic segment of the left fallopian tube. Two small air bubbles are noted within the otherwise normal endometrial cavity.. <Electronically signed by Saman Hopper > 03/29/21 [id number]
== END ==
LOC: M RADPRO 11:01
PROVIDERS: ATTEND Obstetrics & Gynecology
DX: N97.9 Female infertility, unspecified (principal)
CPT/HCPCS: 58340; 74740; Q9967

== ENCOUNTER → 2021-03-31 | Outpatient (CLI) | payer OTHER ==
[~2021-03-31] MED LIST changes: -ISOVUE-370 76% 100ML VIAL As Ordered ONE
[2021-03-31 10:37] LABS: CORTISOL AM 9.9 UG/DL (4.3-22.4); PROLACTIN 17.9 NG/ML
== END ==
LOC: M LAB 08:27
PROVIDERS: ATTEND Nurse Practitioner Family
DX: E22.1 Hyperprolactinemia (principal)

== ENCOUNTER → 2021-04-11 | Outpatient (CLI) | payer OTHER ==
--- NOTE | 2021-04-17 20:21 | SLEEPCENT ---
NOCTURNAL POLYSOMNOGRAPHY DATE: 04/11/2021 ORDERED BY: MINDY Richardson Nocturnal polysomnography was performed for evaluation of sleep physiology in this patient with a history of excessive somnolence and snoring. 7 hours and 34 minutes of data were reviewed. There were 374 minutes of sleep identified. Sleep latency was mildly prolonged at 49 minutes. REM latency was short at 51 minutes. Sleep architecture was good with four REM cycles noted. Overall sleep efficiency was 83.3%. The electrocardiogram showed a sinus rhythm with an average heart rate of 99 beats per minute; rate range 80 to 110. EEG showed normal waveforms for wake and sleep stages. There were no focal events appreciated. There were no obstructive respiratory events identified of 10 seconds in duration or greater. Snoring was, however, noted. No arousals from snoring were appreciated. There was some activity in the EMG leads from lower extremities. Limb movement arousal index was, however, normal at 3.2. Oxygen saturations remained normal throughout the study. IMPRESSION: Normal nocturnal polysomnography with snoring.
== END ==
LOC: M SLEEP 20:00
PROVIDERS: ATTEND Nurse Practitioner Family
DX: R06.83 Snoring (principal)

== ENCOUNTER 2021-05-11 09:44 | Day surgery (SDC) | payer OTHER ==
[~2021-05-11] VITALS: Ht 167.6 cm; Wt 81.6 kg
[~2021-05-11 09:44] MED LIST changes: +ACETAMINOPHEN 1000MG 100ML IV BTL (OFIRMEV) (J0131 PER 10MG) As Ordered ONE; +AMLO1TAB24 PO; +BUSP10TA PO; +HYDR12CA PO; +LIDOCAINE 1% MDV 20ML VIAL SQ PRN; +LIDOCAINE 2% 100MG/5ML SDV (FOR ANES.) As Ordered ONE; +LR 1,000 ML IV ONE; +MELA3TAB30 PO; +METF500T13 PO; +ONDANSETRON 4MG/2ML VIAL As Ordered ONE; +ROCURONIUM BROMIDE 50 MG/5 ML VIAL As Ordered ONE; +SUGAMMADEX SODIUM 500 MG/5 ML VIAL (BRIDION) As Ordered ONE; +ceFAZolin SOD 1 GM in D5W MINI-BAG PLUS 50 ML IV ONE; +dexameTHASONE 4 MG/ML 1ML VIAL (J1100 PER 1MG) As Ordered ONE; +fentaNYL 100 MCG/2 ML INJECTION (J3010) As Ordered ONE; +propofoL 200 MG/20 ML VIAL As Ordered ONE
[2021-05-11] MEDS ORDERED: LIDOCAINE 1% MDV 20ML VIAL As Ordered ONE (10:10)
[2021-05-11] MEDS ORDERED: EPINEPHrine INJ 1 MG/ML 1ML AMP As Ordered ONE (10:10)
[2021-05-11] MEDS ORDERED: ROPIvacaine 0.5% 30ML INJECTION (J2795 PER 1MG) XX ONE (10:40)
[2021-05-11] MEDS ORDERED: LIDOCAINE 1% MDV 20ML VIAL XX ONE (10:40)
[2021-05-11] MEDS ORDERED: EPINEPHrine INJ 1 MG/ML 1ML AMP XX ONE (10:40)
[2021-05-11] MEDS ORDERED: dexameTHASONE 10MG/1ML VIAL PRES.FREE (J1100 PER 1MG) XX ONE (10:40)
[2021-05-11] MEDS: fentaNYL 100 MCG/2 ML INJECTION (J3010) IV PRN ×2 (10:56→11:21)
[2021-05-11] MEDS: MIDAZOLAM INJ 2MG/2ML VIAL (J2250 PER 1MG) IV PRN ×2 (10:56→11:20)
[2021-05-11] MEDS ORDERED: LABETALOL 100MG/20ML VIAL As Ordered ONE (11:40)
[2021-05-11] MEDS ORDERED: ACETAMINOPHEN 1000MG 100ML IV BTL (OFIRMEV) (J0131 PER 10MG) As Ordered ONE (11:49)
[2021-05-11] MEDS ORDERED: ESMOLOL INJ 100MG/10ML VIAL As Ordered ONE (12:01)
[2021-05-11] MEDS ORDERED: fentaNYL 100 MCG/2 ML INJECTION (J3010) As Ordered ONE (12:05)
[2021-05-11] MEDS ORDERED: PHENYLephrine 500MCG 5ML (100MCG/ML) SYRINGE As Ordered ONE (12:41)
[2021-05-11] MEDS ORDERED: PERCOCET 5MG/325MG TAB PO PRN (14:05)
[2021-05-11] MEDS ORDERED: ONDANSETRON 4MG/2ML VIAL IV PRN ×2 (14:05)
[2021-05-11] MEDS ORDERED: METOCLOPRAMIDE INJ 10MG/2ML VIAL (J2765 PER 1) IV PRN (14:05)
[2021-05-11] MEDS ORDERED: fentaNYL 100 MCG/2 ML INJECTION (J3010) IV PRN (14:05)
[2021-05-11] MEDS ORDERED: LR 1,000 ML IV SCH ×2 (14:05)
[2021-05-11] MEDS ORDERED: MORPHINE 2 MG/ML 1ML VIAL (J2270) IV PRN (14:05)
[2021-05-11] MEDS ORDERED: ACETAMINOPHEN TAB 650MG DOSE (2X325MG) PO PRN (14:05)
[2021-05-11] MEDS ORDERED: oxyCODONE 5MG TAB PO PRN (14:05)
--- NOTE | 2021-05-11 14:12 | ROOPDOC ---
[facility] Report Of Operation Report of Operation DATE OF PROCEDURE: 05/11/21 PREPROCEDURE DIAGNOSES: Right shoulder rotator cuff tear. POSTPROCEDURE DIAGNOSES: Same. PROCEDURE PERFORMED: Right shoulder arthroscopy, subacromial decompression, rotator cuff repair, distal clavicle excision. SURGEON: Dr. Arben Loera MD EMBEDDED FIRMWARE ENGINEER: None ANESTHESIA: General anesthesia and block doctor randi. ESTIMATED BLOOD LOSS: Approximately 50 mL. COMPLICATIONS: None. REMARKS: None. FINDINGS: Over 50% partial thickness anterior leading edge supraspinatus tear and anterior superior labral fraying SPECIMENS REMOVED: None PROCEDURE NOTE: This 41-year-old female had signs and symptoms, MRI evidence of leading edge partial width full-thickness tear anterior supraspinatus tendon as well as AC joint arthrosis and labral fraying. She was agreed with operative management. We discussed the pros and cons risks and benefits of nonoperative treatment versus going ahead with surgery. I marked the right upper extremity. She understands and had no further questions.. DESCRIPTION OF PROCEDURE: Patient was brought to the operating room theater. They are ministered 2 g of IV Ancef. They are administered general anesthetic. They were placed right lateral decubitus with the beanbag positioner. Axillary roll was placed all bony prominences padded. SCDs used on the legs. Right upper extremity prepped and draped in the usual sterile fashion with chlorhexidine-based prep solution over 3 minutes drying time prior to draping. Placed in traction set up in 45 degrees of abduction with 10 pounds of traction. Preoperative timeout performed to confirm the site patient and surgery. Began by performing a thorough diagnostic arthroscopy. I used a posterior arthroscopy portal inserted the arthroscope into the intra-articular portion of the shoulder. I used spinal needle inside-out localization to create an anterior portal just posterior to the biceps tendon through the rotator interval. Cartilage on the glenoid and humeral head were normal. No obvious loose bodies. Biceps root appeared stable. Very mild synovitis no longitudinal tearing or instability of the biceps tendon. There is some small amount of fraying but no obvious looseness or detaching or tear of the anterior superior part of the labrum from about 1-3 o'clock. Gently debrided. Biceps anchor at the subscapularis appeared to have some minor fraying this was gently debrided subscapularis looked intact there is no obvious medial subluxation of the biceps tendon. Undersurface the rotator supraspinatus tendon anterior border had over 50% partial thickness undersurface mostly tearing this was marked with a spinal needle. I then inserted the arthroscope into the subacromial space. I performed a thorough bursectomy. There is moderate to high amount of bursitis slightly inflammatory appearing. Identified the distal lower end of the clavicle. There is a slight prominence hook shaped appearance to this that correlated with the MRI. I performed a distal clavicle excision for a length of about 3.5 mm. Down to stable smooth margins. I then performed subacromial decompression of just a minor amount of downsloping the anterolateral undersurface of the acromion for about 1 to 2 mm this was very cautiously performed as on the MRI her acromion was maximum 4 to 5 mm thick and this was commented on by the radiologist. I then made 2 portals laterally with cannulas to avoid soft tissue suture bridges. There is the area of anterior over 50% partial thickness tearing at the leading edge of the supraspinatus tendon that I identified and completed. I used the Arthrex power pick instrument to stimulate healing at the repair site. The tear was completed and measured approximately 1 cm x 1 cm. I then used the scorpion instrument passed one #2 FiberWire suture in an inverted horizontal mattress. I then used the punch followed by inserting the sutures at the site of repair and fixating this with a knotless Arthrex 4.75 mm swivel lock anchor. This achieved good tension-free repair. Case was terminated arthroscope withdrawn. Portals closed with 3-0 Monocryl sutures. Skin was cleaned with wet and a dressing followed application of Steri-Strips Adaptic 4 by 8 gauze abdominal pad dressings and cloth tape as well as a sling for the upper extremity. Pictures were taken throughout the case and saved onto the system. Patient was woken up from general anesthetic transferred off the operating room table and taken to postanesthetic care unit in stable condition. All sponge needle instrument counts were correct no complications estimated blood loss 50 cc. Plan to the patient gentle pendulum exercises starting postoperative day 1 as well as hand wrist and elbow exercises. Sling for 2 weeks and start physical therapy for gentle assisted and passive range of motion. To follow-up in the office in 2 weeks time. Discharge home according to day surgery criteria when they are comfortable. Prescription of choice has been sent to the pharmacy electronically. This had to be at [facility] I cannot send unfortunately electronic prescriptions to [facility]. Postoperative wound instructions were given. It was recommended to keep the wound clean and dry. Dressing changes as needed. It was reinforced with the patient that they should call us or be seen immediately for redness, drainage, or fever. Risk factors for harms from taking opioid medications discussed and assessed including but not limited to personal or family history of substance use disorder, anxiety or depression, , age 65 or older, COPD or other underlying respiratory conditions, and renal or hepatic insufficiency. Discussed with patient concerns and determined any harms they may experience or be currently experiencing such as nausea or constipation, feeling sedated or confused, breathing interruptions during sleep, or taking or craving more opioids than prescribed or difficulty controlling use (addiction). Discussed early warning signs of overdose including confusion, sedation, slurred speech, abnormal gait. ARBEN LOERA MD May 11, 2021 14:12
[2021-05-11 14:50] VITALS: BP 145/87
== END 2021-05-11 15:40 | disposition home or self-care (01) ==
LOC: M SDC 09:44
PROVIDERS: ATTEND Orthopaedic Surgery Sports Medicine
DX: S46.011A Strain of muscle(s) and tendon(s) of the rotator cuff of right shoulder, initial encounter (principal); W01.198A Fall on same level from slipping, tripping and stumbling with subsequent striking against other object, initial encounter; Y92.89 Other specified places as the place of occurrence of the external cause; I10 Essential (primary) hypertension; R60.0 Localized edema; R73.03 Prediabetes; Z96.652 Presence of left artificial knee joint; Z91.013 Allergy to seafood; Z91.018 Allergy to other foods; Z79.899 Other long term (current) drug therapy; Z79.84 Long term (current) use of oral hypoglycemic drugs
CPT/HCPCS: 29824; 29826; 29827; 64415; C1713; J0131; J0171; J1100; J2250; J2370; J2405; J2795; J3010

== ENCOUNTER → 2021-12-21 | Outpatient (CLI) | payer OTHER ==
[~2021-12-21] MED LIST changes: -ACETAMINOPHEN 1000MG 100ML IV BTL (OFIRMEV) (J0131 PER 10MG) As Ordered ONE; -D31000TA2 PO; -LIDOCAINE 1% MDV 20ML VIAL SQ PRN; -LIDOCAINE 2% 100MG/5ML SDV (FOR ANES.) As Ordered ONE; -LR 1,000 ML IV ONE; -ONDANSETRON 4MG/2ML VIAL As Ordered ONE; -ROCURONIUM BROMIDE 50 MG/5 ML VIAL As Ordered ONE; -SUGAMMADEX SODIUM 500 MG/5 ML VIAL (BRIDION) As Ordered ONE; +VITA100093 PO; -ceFAZolin SOD 1 GM in D5W MINI-BAG PLUS 50 ML IV ONE; -dexameTHASONE 4 MG/ML 1ML VIAL (J1100 PER 1MG) As Ordered ONE; -fentaNYL 100 MCG/2 ML INJECTION (J3010) As Ordered ONE; -propofoL 200 MG/20 ML VIAL As Ordered ONE
== END ==
LOC: M SOG 14:28
PROVIDERS: ATTEND Orthopaedic Surgery Adult Reconstructive Orthopaedic Surgery
DX: Z96.652 Presence of left artificial knee joint (principal)

== ENCOUNTER → 2021-12-26 | Outpatient (CLI) | payer OTHER | LOC: M SOG 13:43 | PROVIDERS: ATTEND Orthopaedic Surgery | DX: M25.611 Stiffness of right shoulder, not elsewhere classified (principal) ==